=== PATIENT | female | born 1975 | race Caucasian/White ===

== ENCOUNTER 2018-10-06 09:55 | Inpatient (IN) | payer OTHER, MEDICAID ==
[~2018-10-06] VITALS: Ht 170.2 cm; Wt 53.7 kg
[~2018-10-06 09:55] MED LIST: ELIQUIS 5MG; METHIMAZOLE; METO25TA6 PO
[2018-10-06] MEDS ORDERED: PROPRANOLOL HCL 1MG/ML AMPULE IV ONE ×2 (10:30→12:00)
[2018-10-06] MEDS ORDERED: HYDROCORTISONE SOD SUCCINATE 100 MG/2 ML VIAL IV ONE (10:30)
[2018-10-06 10:47] LABS: BASOPHILS % 0.5 % (0.0-2.0); HEMATOCRIT. 44.4 % (36.0-48.0); HEMOGLOBIN. 14.8 g/dL (12.0-16.0); LYMPHOCYTES % 29.1 % (20.0-50.0); MEAN CORPUSCULAR HEMOGLOBIN 27.5 pg (28.0-32.0); MEAN CORPUSCULAR VOLUME 82.2 fL (81.0-99.0); MEAN PLATELET VOLUME 9.7 fl (7.4-10.4); MONOCYTES % 8.8 % (2.0-8.0); NEUTROPHILS % 56.6 % (40.0-76.0); PLATELET 139 x1000/uL (130-400)
[2018-10-06 10:53] LABS: CHLORIDE 114 mEq/L (98-107)
[2018-10-06 11:03] LABS: T4 FREE 3.02 ng/dL (0.76-1.46)
[2018-10-06] MEDS ORDERED: METHIMAZOLE 5MG TABLET PO STA (11:32)
[2018-10-06] MEDS ORDERED: PROPRANOLOL HCL 20MG TABLET PO ONE (12:45)
[2018-10-06] MEDS ORDERED: HYDROCODONE/ACETAMINOPHEN 5/325MG TABLET PO PRN (14:45)
[2018-10-06] MEDS ORDERED: CLONIDINE 0.1MG TABLET PO PRN (14:45)
[2018-10-06] MEDS ORDERED: DIPHENHYDRAMINE 50MG/ML VIAL IV PRN (14:45)
[2018-10-06] MEDS ORDERED: MAGNESIUM/ALUMINUM HYDROXIDE/SIMETHICONE 30ML UDC PO PRN (14:45)
[2018-10-06] MEDS ORDERED: DOCUSATE SODIUM 100MG CAPSULE PO PRN (14:45)
[2018-10-06] MEDS ORDERED: IPRATROPIUM/ALBUTEROL 0.5-3(2.5)MG/3ML NEB INH PRN (14:45)
[2018-10-06] MEDS ORDERED: ONDANSETRON HCL 4MG/2ML INJ IV PRN (14:45)
[2018-10-06] MEDS ORDERED: LORAZEPAM 2MG/ML CPJ IV PRN (14:45)
[2018-10-06] MEDS ORDERED: ACETAMINOPHEN 325MG TABLET PO PRN (14:45)
[2018-10-06] MEDS ORDERED: MORPHINE SULFATE 10 MG/ML CPJ IV PRN (14:45)
[2018-10-06] MEDS ORDERED: GUAIFENESIN 200MG/10ML SUGAR FREE UDC PO PRN (14:45)
[2018-10-06] MEDS ORDERED: NA PHOS,M-B/NA PHOS,DI-BA ENEMA 118ML PR PRN (14:45)
[2018-10-06] MEDS ORDERED: ENOXAPARIN 40MG/0.4ML SYR SUBCUT SCH (15:00)
[2018-10-06 15:25] VITALS: BP 108/62
[2018-10-06 16:00] VITALS: BP 101/70
[2018-10-06] MEDS ORDERED: DIGOXIN 500MCG/2ML AMP IV NR (16:30)
[2018-10-06] MEDS ORDERED: METOPROLOL TARTRATE 25MG TABLET PO NR (16:30)
[2018-10-06 17:22] LABS: CHLORIDE 107 mEq/L (98-107)
[2018-10-06 20:00] VITALS: BP 123/45
[2018-10-06] MEDS: METOPROLOL TARTRATE 25MG TABLET PO SCH (20:50)
[2018-10-06 22:00] VITALS: BP 94/60
[2018-10-07] VITALS (9 sets, daily range): BP systolic 93–123; BP diastolic 48–82
[2018-10-07 05:51] LABS: BASOPHILS % 0.6 % (0.0-2.0); HEMATOCRIT. 41.4 % (36.0-48.0); HEMOGLOBIN. 14.1 g/dL (12.0-16.0); LYMPHOCYTES % 52.6 % (20.0-50.0); MEAN CORPUSCULAR HEMOGLOBIN 27.9 pg (28.0-32.0); MEAN CORPUSCULAR VOLUME 81.8 fL (81.0-99.0); MEAN PLATELET VOLUME 9.9 fl (7.4-10.4); MONOCYTES % 9.5 % (2.0-8.0); NEUTROPHILS % 32.3 % (40.0-76.0); PLATELET 152 x1000/uL (130-400); RED BLOOD CELL COUNT 5.06 mill/uL (4.2-5.4); RED CELL DISTRIBUTION WIDTH 12.9 % (11.6-14.6)
[2018-10-07 06:30] LABS: CHLORIDE 109 mEq/L (98-107)
[2018-10-07 06:39] LABS: LDL CHOLESTEROL 86 mg/dL (5-100)
[2018-10-07 06:40] LABS: HDL CHOLESTEROL 44 mg/dL (40-59)
[2018-10-07] MEDS: METOPROLOL TARTRATE 25MG TABLET PO SCH (08:20)
[2018-10-07] MEDS ORDERED: ASPIRIN 81MG EC TABLET PO SCH (09:00)
[2018-10-07] MEDS ORDERED: POTASSIUM CHLORIDE 20MEQ TABLET SR PO SCH (09:00)
[2018-10-07] MEDS ORDERED: METHIMAZOLE 5MG TABLET PO SCH (09:00)
[2018-10-07 10:46] LABS: T4 FREE 2.8 ng/dL (0.76-1.46)
[2018-10-07] MEDS ORDERED: RIVAROXABAN 20 MG TABLET PO SCH (11:44)
== END 2018-10-07 14:40 | disposition home or self-care (01) | DRG 201 ==
LOC: ER 09:59 → EDBEDREQ 12:51 → EDBEDREQSVC 12:51 → 3WST 12:57 → EDBEDREQ 12:59 → ENRESERV 13:43
PROVIDERS: ADMIT Internal Medicine; ATTEND Internal Medicine
DX: I48.0 Paroxysmal atrial fibrillation (principal); I11.9 Hypertensive heart disease without heart failure; E05.90 Thyrotoxicosis, unspecified without thyrotoxic crisis or storm; I48.92 Unspecified atrial flutter; Z79.01 Long term (current) use of anticoagulants; Z91.14 Patient's other noncompliance with medication regimen; Z79.899 Other long term (current) drug therapy
CPT/HCPCS: 36415; 71045; 78580; 80048; 80061; 81025; 83036; 83880; 84439; 84443; 84481; 84484; 93005; 93306; 96374; 96375; 96376; 99285; J1160; J1650; J1720; J1800